=== PATIENT | male | born 2000 | race Two or more races ===

== ENCOUNTER 2025-07-06 09:06 | Emergency (ER) | payer BC, SELFPAY ==
[2025-07-06 09:12] VITALS: BP 137/81; PULSE 84; TEMP 36.6; O2SAT 98; BMI 18.7
--- NOTE | 2025-07-06 09:21 | ED.GENADUL1 ---
HPI HPI - General Adult General Chief complaint: Urogenital-Male Stated complaint: BURNING URINATION Time Seen by Provider: 07/06/25 09:14 Source: patient Mode of arrival: walk-in History of Present Illness HPI narrative: 24-year-old male presents to the emergency department for burning on urination which started this morning. No genital area skin lesions no penile drainage. No gross hematuria or flank pain or abdominal pain. He is somewhat worried about an STD. Related Data Home Medications ?Medication ?Instructions ?Recorded ?Confirmed No Known Home Medications 07/06/25 07/06/25 Allergies Allergy/AdvReac Type Severity Reaction Status Date / Time No Known Drug Allergies Allergy Verified 07/06/25 09:11 Review of Systems ROS Narrative A ten point review of systems is negative except as noted above. PFSH PFSH Social History Little interest or pleasure in doing things: not at all Feeling down, depressed, or hopeless: not at all Exam Narrative Exam Narrative: Nurses note and vital signs reviewed and patient is not hypoxic. General:The patient appears well and in no apparent distress.Patient is resting comfortably on cart. Skin:Warm, dry, no pallor noted.There is no rash noted. Head:Normocephalic, atraumatic Eye: Normal conjunctiva, no drainage Ears, Nose, Mouth, and Throat: oral mucosa is moist. Nares patent. Cardiovascular:Regular Rate and Rhythm Respiratory:Patient is in no distress, no accessory muscle use, lungs are clear to auscultation, no wheezing, rales or rhonchi Back:non-tender GI: Soft Musculoskeletal: The patient has no evidence of calf tenderness, no pitting edema, symmetrical pulses noted bilaterally Neurological:A&O, normal speech Psychiatric:Cooperative Constitutional Vital Signs, click to edit/add: Last Vital Signs Temp 98 F 07/06/25 09:12 Pulse 84 07/06/25 09:12 Resp 16 07/06/25 09:12 BP 137/81 07/06/25 09:12 Pulse Ox 98 07/06/25 09:12 O2 Del Method Room Air 07/06/25 09:12 Course Vital Signs Vital signs: Vital Signs Temperature 98 F 07/06/25 09:12 Pulse Rate 84 07/06/25 09:12 Respiratory Rate 16 07/06/25 09:12 Blood Pressure 137/81 07/06/25 09:12 Pulse Oximetry 98 07/06/25 09:12 Oxygen Delivery Method Room Air 07/06/25 09:12 Temperature 98 F 07/06/25 09:12 Pulse Rate 84 07/06/25 09:12 Respiratory Rate 16 07/06/25 09:12 Blood Pressure 137/81 07/06/25 09:12 Pulse Oximetry 98 07/06/25 09:12 Oxygen Delivery Method Room Air 07/06/25 09:12 Medical Decision Making MDM Narrative Medical decision making narrative: His urinalysis today is negative. Gonorrhea and Chlamydia test are pending. He was given the option of treatment today versus awaiting the results of the STD testing. He prefers to wait for the test results and does not feel that he needs to be treated today. Treatment diagnosis and follow-up were discussed with the patient. Differential Diagnosis Differential Diagnosis: UTI, STD, dysuria Lab Data Lab results reviewed: Yes I reviewed the patient's lab results Labs: Lab Results 07/06/25 Range/Units 09:28 Urine Color Lt. yellow (YELLOW) Urine Clarity Clear (CLEAR) Urine pH 7.5 (5.0-9.0) Ur Specific [place] 1.015 (1.005-1.025) Urine Protein Negative (NEG/TRACE) mg/dL Urine Glucose (UA) Negative (NEGATIVE) mg/dL Urine Ketones Negative (NEGATIVE) mg/dL Urine Occult Blood Negative (NEGATIVE) Urine Nitrite Negative (NEGATIVE) Urine Bilirubin Negative (NEGATIVE) Urine Urobilinogen 0.2 (0.2-1.0) EU/dL Ur Leukocyte Esterase Negative (NEGATIVE) Urine RBC 0-2 (0-2) #/HPF Urine WBC 0-2 A (NONE SEEN) #/HPF Ur Squamous Epith Cells Rare (NONE/RARE) #/LPF Urine Crystals None seen (None Seen) #/HPF Urine Bacteria Trace A (NONE SEEN) #/HPF Urine Casts None seen (NONE SEEN) #/LPF Urine Mucus Trace A (NONE SEEN) Urine Sperm Seen Ur Culture Indicated? No Discharge Plan Discharge Chief Complaint: Urogenital-Male Clinical Impression: Dysuria Patient Disposition: Home, Self-Care Time of Disposition Decision: 10:04 Condition: Good Mode of Transportation: Private Vehicle Prescriptions / Home Meds: No Action No Known Home Medications Print Language: Lithuanian Instructions: Dysuria (ED) Referrals: Physician,Non-Staff, [Primary Care Provider] - 1 week
[2025-07-06 09:46] LABS: Glucose Urine UA NEGATIVE (NEGATIVE)
[2025-07-06 09:57] LABS: Cast Seen? NONE SEEN #/LPF (NONE SEEN); Crystals Seen? None Seen #/HPF (None Seen)
[2025-07-06 09:58] LABS: Urine Culture Indicated NO
[2025-07-08 20:08] LABS: Neisseria gonorrhoeae, NAA Negative (Negative)
== END 2025-07-06 10:09 | disposition home or self-care (01) ==
PROVIDERS: Emergency Provider Emergency Medicine
DX: R30.0 Dysuria (principal)
CPT/HCPCS: 81001; 87491; 87591; 99283